=== PATIENT | male | born 1985 | race Asian ===

== ENCOUNTER 2018-09-17 01:27 | Emergency (ER) | payer MEDICAID ==
[~2018-09-17] VITALS: Ht 170.2 cm; Wt 81.8 kg
[2018-09-17 03:19] LABS: BASOPHILS % (AUTO) 0.6 % (0.0-2.0); EOSINOPHILS % (AUTO) 0.2 % (1.0-6.0); HEMATOCRIT 41.4 % (41-53); HEMOGLOBIN 13.6 g/dL (13.5-17.5); LYMPHOCYTES % (AUTO) 18.3 % (22.0-44.0); MEAN CORPUSCULAR HEMOGLOBIN 26.7 pg (26.0-34.0); MEAN CORPUSCULAR HGB CONC 32.8 G/dL (31.0-37.0); MEAN CORPUSCULAR VOLUME 81 fL (80-100); MONOCYTES # (AUTO) 1.4 K/uL (0.1-1.0); MONOCYTES % (AUTO) 12.8 % (2.0-9.0); NEUTROPHILS # (AUTO) 7.4 K/uL (1.8-7.7); NEUTROPHILS % (AUTO) 68.1 % (40.0-70.0); PLATELET COUNT (AUTO) 425 K/uL (150-450); RED BLOOD CELL COUNT(AUTO) 5.08 MIL/uL (4.50-5.90)
[2018-09-17 03:22] LABS: ANION GAP 9 mmol/L (8-16); CALCIUM, TOTAL 9.5 mg/dL (8.8-10.5); CARBON DIOXIDE 27 mmol/L (22-29); CHLORIDE 100 mmol/L (98-107); CREATININE 1.03 mg/dL (0.60-1.30); GLOMERULAR FILTR. RATE CALC > 60 mL/min (>60); GLUCOSE,RANDOM 102 mg/dL (70-110); POTASSIUM 3.9 mmol/L (3.5-5.1); SODIUM SERUM 136 mmol/L (136-145); UREA NITROGEN, BLOOD 23 mg/dL (7-18)
[2018-09-17 03:27] LABS: ALANINE AMINOTRANSFERASE 45 U/L (12-78); ALBUMIN 4.3 g/dL (3.4-5.0); ALKALINE PHOSPHATASE 74 U/L (46-116); ASPARTATE AMINOTRANSFERASE 41 U/L (15-37); BILIRUBIN,TOTAL 0.6 mg/dL (0.1-1.0); TOTAL PROTEIN, SERUM 8.6 g/dL (6.4-8.2)
[2018-09-17 03:39] LABS: AMPHET/METH SCREEN,URINE POSITIVE (NEGATIVE); BARBITURATE SCREEN, URINE NEGATIVE (NEGATIVE); BENZODIAZEPINES SCREEN,URINE NEGATIVE (NEGATIVE); CANNABINOID SCREEN,URINE NEGATIVE (NEGATIVE); COCAINE SCREEN,URINE NEGATIVE (NEGATIVE); METHADONE SCREEN, URINE NEGATIVE (NEGATIVE); OPIATE SCREEN,URINE NEGATIVE (NEGATIVE)
[2018-09-17 03:41] LABS: PHENCYCLIDINE SCREEN,URINE NEGATIVE (NEGATIVE)
[2018-09-17 04:10] VITALS: BP 142/87
== END 2018-09-17 04:11 | disposition home or self-care (01) ==
LOC: EMS 01:27
DX: F20.9 Schizophrenia, unspecified (principal); J45.909 Unspecified asthma, uncomplicated; F41.9 Anxiety disorder, unspecified; F17.210 Nicotine dependence, cigarettes, uncomplicated; Z91.048 Other nonmedicinal substance allergy status; Z88.8 Allergy status to other drugs, medicaments and biological substances
CPT/HCPCS: 36415; 80053; 80307; 85025; 99285; G0480

== ENCOUNTER 2022-08-09 18:44 | Emergency (ER) | payer MEDICAID, OTHER ==
[~2022-08-09] VITALS: Ht 170.2 cm; Wt 93.2 kg
[2022-08-09 19:50] LABS: BASOPHILS % (AUTO) 0.8 % (0.0-2.0); HEMATOCRIT 36.9 % (41-53); HEMOGLOBIN 11.8 g/dL (13.5-17.5); LYMPHOCYTES # (AUTO) 2.1 K/uL (1.0-4.8); LYMPHOCYTES % (AUTO) 16.7 % (22.0-44.0); MEAN CORPUSCULAR HGB CONC 32.1 G/dL (31.0-37.0); MEAN CORPUSCULAR VOLUME 81 fL (80-100); MONOCYTES % (AUTO) 8.3 % (2.0-9.0); NEUTROPHILS # (AUTO) 9.1 K/uL (1.8-7.7); NEUTROPHILS % (AUTO) 73.2 % (40.0-70.0); PLATELET COUNT (AUTO) 534 K/uL (150-450); RED BLOOD CELL COUNT(AUTO) 4.55 MIL/uL (4.50-5.90); RED CELL DISTRIBUTION WIDTH 13.7 % (11.5-14.5)
[2022-08-09 20:06] LABS: ANION GAP 8 mmol/L (8-16); CARBON DIOXIDE 29 mmol/L (22-29); CHLORIDE 103 mmol/L (98-107); CREATININE 0.97 mg/dL (0.60-1.30); GLUCOSE,RANDOM 129 mg/dL (70-110); POTASSIUM 3.7 mmol/L (3.5-5.1); SODIUM SERUM 140 mmol/L (136-145); UREA NITROGEN, BLOOD 13 mg/dL (7-18)
[2022-08-09 20:15] LABS: GLOMERULAR FILTR. RATE CALC > 60 mL/min (>60)
[2022-08-09] MEDS ORDERED: ACETAMINOPHEN 325 MG TABLET PO ONE (20:30)
[2022-08-09 20:38] LABS: ERYTHROCYTE SEDIMENTATION RATE 60 MM/HR (0-15)
[2022-08-09] MEDS ORDERED: PERTUSS(ACELL),DIPH,TET VAC/PF 0.5 ML SYRINGE IM. ONE (21:00)
[2022-08-09] MEDS ORDERED: CEPHALEXIN MONOHYDRATE 500 MG CAPSULE PO ONE (21:00)
[2022-08-09] MEDS ORDERED: SULFAMETHOX/TRIMETH DS 800-160 MG/TABLET PO ONE (21:00)
[2022-08-09] MEDS ORDERED: LIDOCAINE 1% 10 ML VIAL SQ ONE (21:00)
[2022-08-09] MEDS ORDERED: BACTDSB PO (21:02)
[2022-08-09] MEDS ORDERED: CEPH-558 PO (21:03)
[2022-08-09 21:25] VITALS: BP 118/59
[2022-08-09] MEDS ORDERED: BACITRACIN 0.9 GM PACKET OINTMENT TP ONE (21:45)
[2022-08-10 02:36] LABS: GLUCOMETER DEV NAME(LOC) ERT.5; GLUCOSE,POINT OF CARE 113 MG/DL (70-110)
== END 2022-08-09 22:07 | disposition home or self-care (01) ==
LOC: EMS 18:44
DX: L03.012 Cellulitis of left finger (principal); F41.9 Anxiety disorder, unspecified; J45.909 Unspecified asthma, uncomplicated; F17.210 Nicotine dependence, cigarettes, uncomplicated; Z91.09 Other allergy status, other than to drugs and biological substances; Z59.00 Homelessness unspecified
CPT/HCPCS: 99284; 26010; 80048; 82962; 85025; 85651; 86140; 36415; 73140; 90715; 82948; 90471; J3490

== ENCOUNTER 2022-08-11 17:16 | Emergency (ER) | payer OTHER ==
[~2022-08-11] VITALS: Ht 170.2 cm; Wt 93.2 kg
[~2022-08-11 17:16] MED LIST: BACTDSB PO; CEPH-558 PO
[2022-08-11 17:55] VITALS: BP 134/73
[2022-08-11] MEDS ORDERED: IBUP-1554 PO (17:57)
[2022-08-11] MEDS ORDERED: BACI28OI29 TP (17:57)
[2022-08-11] MEDS ORDERED: BACITRACIN 0.9 GM PACKET OINTMENT TP ONE (18:00)
== END 2022-08-11 18:34 | disposition home or self-care (01) ==
LOC: EMS 17:39
DX: L03.012 Cellulitis of left finger (principal); F41.9 Anxiety disorder, unspecified; J45.909 Unspecified asthma, uncomplicated; F17.210 Nicotine dependence, cigarettes, uncomplicated; Z91.09 Other allergy status, other than to drugs and biological substances
CPT/HCPCS: 11730; 99284; Z7502; Z7610

== ENCOUNTER 2022-08-13 15:50 | Emergency (ER) | payer OTHER ==
[~2022-08-13 15:50] MED LIST changes: +BACI28OI29 TP; +IBUP-1554 PO
== END 2022-08-13 17:42 | disposition home or self-care (01) ==
LOC: EMS 15:52
DX: L03.012 Cellulitis of left finger (principal); F41.9 Anxiety disorder, unspecified; J45.909 Unspecified asthma, uncomplicated; F17.210 Nicotine dependence, cigarettes, uncomplicated; Z91.09 Other allergy status, other than to drugs and biological substances
CPT/HCPCS: 99282; Z7502

== ENCOUNTER 2023-02-05 22:14 | Emergency (ER) | payer OTHER ==
[~2023-02-05] VITALS: Ht 170.2 cm; Wt 81.0 kg
[~2023-02-05 22:14] MED LIST changes: +BACI28.410 TP; -BACI28OI29 TP
[2023-02-06 01:56] LABS: BASOPHILS % (AUTO) 0.7 % (0.0-2.0); EOSINOPHILS % (AUTO) 0.1 % (1.0-6.0); HEMATOCRIT 39.4 % (41-53); HEMOGLOBIN 12.8 g/dL (13.5-17.5); LYMPHOCYTES # (AUTO) 1.3 K/uL (1.0-4.8); LYMPHOCYTES % (AUTO) 9.5 % (22.0-44.0); MEAN CORPUSCULAR HGB CONC 32.4 G/dL (31.0-37.0); MEAN CORPUSCULAR VOLUME 80 fL (80-100); MONOCYTES # (AUTO) 1.8 K/uL (0.1-1.0); MONOCYTES % (AUTO) 12.8 % (2.0-9.0); NEUTROPHILS # (AUTO) 10.8 K/uL (1.8-7.7); NEUTROPHILS % (AUTO) 76.9 % (40.0-70.0); PLATELET COUNT (AUTO) 351 K/uL (150-450); RED BLOOD CELL COUNT(AUTO) 4.91 MIL/uL (4.50-5.90); RED CELL DISTRIBUTION WIDTH 13.6 % (11.5-14.5)
[2023-02-06 02:05] LABS: CALCIUM, TOTAL 9.6 mg/dL (8.8-10.5); CARBON DIOXIDE 23 mmol/L (22-29); CHLORIDE 91 mmol/L (98-107); CREATININE 2.64 mg/dL (0.60-1.30); GLOMERULAR FILTR. RATE CALC 27 mL/min (>60); GLUCOSE,RANDOM 222 mg/dL (70-110); POTASSIUM 3.6 mmol/L (3.5-5.1)
[2023-02-06 02:11] LABS: ALANINE AMINOTRANSFERASE 116 U/L (12-78); ALBUMIN 4.5 g/dL (3.4-5.0); ALKALINE PHOSPHATASE 93 U/L (46-116); ASPARTATE AMINOTRANSFERASE 127 U/L (15-37); BILIRUBIN,TOTAL 1.1 mg/dL (0.1-1.0); TOTAL PROTEIN, SERUM 8.9 g/dL (6.4-8.2)
[2023-02-06 02:28] LABS: ANION GAP 15 mmol/L (8-16); SODIUM SERUM 129 mmol/L (136-145)
[2023-02-06 03:08] LABS: COVID AG,FIA SOURCE NASOPHARYNGEAL
[2023-02-06 04:38] LABS: AMPHET/METH SCREEN,URINE POSITIVE (NEGATIVE); BARBITURATE SCREEN, URINE NEGATIVE (NEGATIVE); BENZODIAZEPINES SCREEN,URINE NEGATIVE (NEGATIVE); CANNABINOID SCREEN,URINE POSITIVE (NEGATIVE); COCAINE SCREEN,URINE POSITIVE (NEGATIVE); METHADONE SCREEN, URINE NEGATIVE (NEGATIVE); OPIATE SCREEN,URINE NEGATIVE (NEGATIVE); PHENCYCLIDINE SCREEN,URINE NEGATIVE (NEGATIVE)
[2023-02-06] MEDS ORDERED: LORazepam 2 MG TABLET PO ONE (05:00)
[2023-02-06 05:09] VITALS: TEMP 98.4
[2023-02-06 05:09] LABS: APPEARANCE,URINE TURBID (CLEAR); BILIRUBIN,URINE NEGATIVE (NEGATIVE); GLUCOSE, URINE (UA) TRACE mg/dL (NEGATIVE); KETONES,URINE NEGATIVE (NEGATIVE); LEUKOCYTE ESTERASE ,URINE SMALL (NEGATIVE); NITRATE,URINE NEGATIVE (NEGATIVE); OCCULT BLOOD,URINE LARGE (NEGATIVE); PH,URINE 5.5 (5.0-8.0); PROTEIN,URINE 300-600,SEE CONFIRM mg/dL (NEGATIVE); SPECIFIC GRAVITIY, URINE 1.028 (1.003-1.030); UROBILINOGEN,URINE <=1.0 mg/dL (<=1.0)
[2023-02-06 05:21] LABS: SULFOSALICYLIC ACID,URINE 3+ (Negative)
[2023-02-06 05:22] LABS: BACTERIA,URINE Moderate /HPF (None Seen); SQUAMOUS EPITHELIAL CELL,UR Rare /LPF (None Seen)
[2023-02-06] MEDS ORDERED: CEPH-558 PO (05:33)
[2023-02-06] MEDS ORDERED: PERM60CR19 TP (05:33)
[2023-02-06 05:52] VITALS: BP 111/79; PULSE 85; RESP 18
== END 2023-02-06 05:57 | disposition home or self-care (01) ==
LOC: EMS 22:15
DX: S00.81XA Abrasion of other part of head, initial encounter (principal); F15.129 Other stimulant abuse with intoxication, unspecified; F14.129 Cocaine abuse with intoxication, unspecified; F41.9 Anxiety disorder, unspecified; N39.0 Urinary tract infection, site not specified; B85.1 Pediculosis due to Pediculus humanus corporis; J45.909 Unspecified asthma, uncomplicated; F17.210 Nicotine dependence, cigarettes, uncomplicated; Z20.822 Contact with and (suspected) exposure to COVID-19; W01.0XXA Fall on same level from slipping, tripping and stumbling without subsequent striking against object, initial encounter; Y93.89 Activity, other specified; Y92.89 Other specified places as the place of occurrence of the external cause; Y99.8 Other external cause status
CPT/HCPCS: 99283; 87426; 80053; 85025; 36415; 87086; 87186; 80307; 81001; G0480; 81002